=== PATIENT | female | born 1945 | race Caucasian/White ===

== ENCOUNTER → 2018-02-10 | Outpatient (CLI) | payer OTHER ==
[~2018-02-10] MED LIST: ASPIR 8181 MG PO; ATENOLOL 100MG100 MG PO; COZAAR 50 MG TA50 MG PO; DEVIL S CLAW PO; DUONEB 2.5-0.5 M3 ML INH; LEVAQUIN 500 M500 M2 PO; LOSARTAN-HCTZ1 EAC3 PO; NORCO 7.5-3251 EACH; NORVASC10 MG; NYSTATIN 1100000 U/M SW&SWALLOW; OMEGA-31000 M1; PREDNISONE 20 M20 MG PO
[2018-02-10 09:50] LABS: ABSOLUTE BASOPHILS 0.1 thou/uL (0.0-0.2); ABSOLUTE LYMPHOCYTES 2.2 thou/uL (0.8-5.3); ABSOLUTE MONOCYTES 0.6 thou/uL (0.0-1.2); ABSOLUTE NEUTROPHILS 7.3 thou/uL (1.6-8.1); BASOPHILS 0.7 %; EOSINOPHILS 0.3 %; HEMATOCRIT 42.2 % (37.0-47.0); HEMOGLOBIN 14.7 gm/dL (12.0-15.0); LYMPHOCYTES 21.7 %; MCH 32.2 pg (26.0-34.0); MCHC 34.8 g/dL (28.0-37.0); MCV 92.4 fL (80.0-100.0); MONOCYTES 6.2 %; NUCLEATED RBCS 0 /100WBC; PLATELET COUNT* 194 thou/uL (150-400); POLYS 71.1 %; RBC 4.57 mil/uL (4.20-5.00); RDW-CV 13.1 % (10.5-14.5); WBC 10.3 thou/uL (4.0-11.0)
[2018-02-10 10:49] LABS: ALBUMIN 3.6 g/dL (3.4-5.0); ALKALINE PHOSPHATASE 66 U/L (46-116); ANION GAP 10 mmol/L (7-16); BUN 17 mg/dL (7-18); CHLORIDE 101 mmol/L (98-107); CHOLESTEROL 142 mg/dL (<200); CO2 28 mmol/L (21-32); CREATININE 0.8 mg/dL (0.6-1.3); GLUCOSE 129 mg/dL (70-99); HDL CHOLESTEROL 45 mg/dL (>40); LDL CHOLESTEROL 86 mg/dL (<100); POTASSIUM 4.1 mmol/L (3.5-5.1); SGOT 24 U/L (15-37); SGPT 41 U/L (30-65); SODIUM 139 mmol/L (136-145); TC:HDL 3.2 Ratio (Not establshd); TOTAL BILIRUBIN 0.9 mg/dL (<0.1-1.0); TOTAL PROTEIN 7.3 g/dL (6.4-8.2); TRIGLYCERIDE 56 mg/dL (<150); VLDL 11 mg/dL (<40)
[2018-02-10 10:56] LABS: SERUM ASSESSMENT Clear
[2018-02-11 22:06] LABS: GLYCOHEMOGLOBIN (HGB A1C) 6.3 % (4.8-5.6)
[2018-02-19 10:48] LABS: GLYCOHEMOGLOBIN (HGB A1C) 6.3
== END ==
LOC: M.RAD 08:54
PROVIDERS: Family Medicine
DX: I10 Essential (primary) hypertension (principal); M81.8 Other osteoporosis without current pathological fracture; M18.0 Bilateral primary osteoarthritis of first carpometacarpal joints; R73.09 Other abnormal glucose; Z78.0 Asymptomatic menopausal state; J15.3 Pneumonia due to streptococcus, group B

== ENCOUNTER → 2018-04-17 | Outpatient (CLI) | payer OTHER ==
[2018-04-17 10:32] LABS: ALBUMIN 3.5 g/dL (3.4-5.0); CALCIUM 9.7 mg/dL (8.5-10.1); CREATININE 0.8 mg/dL (0.6-1.3)
== END ==
LOC: M.LAB 10:04
PROVIDERS: Family Medicine
DX: M81.8 Other osteoporosis without current pathological fracture (principal)

== ENCOUNTER → 2018-10-27 | Outpatient (CLI) | payer OTHER ==
[2018-10-27 10:17] LABS: HEMATOCRIT 44.8 % (37.0-47.0); HEMOGLOBIN 15.1 gm/dL (12.0-15.0); MCH 31.9 pg (26.0-34.0); MCHC 33.8 g/dL (28.0-37.0); MCV 94.5 fL (80.0-100.0); MPV 8.9 fl. (7.2-11.1); RBC 4.75 mil/uL (4.20-5.00); RDW-CV 13.4 % (10.5-14.5); WBC 9.1 thou/uL (4.0-11.0)
[2018-10-27 10:42] LABS: ALBUMIN 3.6 g/dL (3.4-5.0); CALCIUM 9.3 mg/dL (8.5-10.1); CREATININE 0.7 mg/dL (0.6-1.3); POTASSIUM 3.7 mmol/L (3.5-5.1); TOTAL BILIRUBIN 1.2 mg/dL (<0.1-1.0); TOTAL PROTEIN 7.4 g/dL (6.4-8.2)
[2018-10-27 19:07] LABS: GLYCOHEMOGLOBIN (HGB A1C) 6.3 % (4.8-5.6)
== END ==
LOC: M.LAB 09:49
PROVIDERS: Nurse Practitioner Family
DX: E11.65 Type 2 diabetes mellitus with hyperglycemia (principal); M81.0 Age-related osteoporosis without current pathological fracture; R53.83 Other fatigue; I10 Essential (primary) hypertension; R60.1 Generalized edema

== ENCOUNTER → 2020-02-14 | Day surgery (SDC) | payer MEDICARE ==
[~2020-02-14] MED LIST changes: +CALCIUM 600 +1 EAC8 PO; +COLACE100 MG PO; +LOSARTAN POTAS100 MG PO; +METFORMIN HCL500 MG PO; +NORCO 5-325 TA1 EACH PO; +OXYCODONE HCL 55 MG PO; +PERCOCET 5-3251 EACH PO; +TUMS PO; +VITAMIN D1000 UNI1 PO; +VITAMIN D325 MC3 PO; +VITAMIN E400 UNIT PO
--- NOTE | ~2020-02-14 | OP ---
[address] [address] OPERATIVE REPORT Name: BERTRAM AYALA Room: [facility]#: [id number] Admission: 02/14/20 Attend Phys: Ralph Parsons II Discharge: Date of : 47 Report #: [id number] THIS REPORT FOR: //name// cc: Jairo Lopez Russell J. DO ~ THIS REPORT FOR: //name// CC: Ralph Lopez DATE OF SERVICE: 02/14/2020 PREOPERATIVE DIAGNOSIS: Left shoulder biceps tendon tear. POSTOPERATIVE DIAGNOSES: 1. Left shoulder biceps tendon tear. 2. Rotator cuff tear. 3. Lateral clavicle osteoarthritis. 4. Bone and cartilage debris with labral tears, glenohumeral joint. 5. Subacromial impingement. PROCEDURES PERFORMED: 1. Left shoulder arthroscopic surgery with rotator cuff repair. 2. Arthroscopic biceps tenodesis. 3. Arthroscopic lateral clavicle excision. 4. Arthroscopic extensive debridement of labral tears in glenohumeral joint. 5. Arthroscopic subacromial decompression. SURGEON: Ralph Parsons II, DO INTENSIVIST: DOROTHY Solis ANESTHESIA: Per operative record. ESTIMATED BLOOD LOSS: Minimal. ANTIBIOTICS: Per operative record. DRAINS: None. COMPLICATIONS: None. CONDITION OF THE PATIENT: Stable to recovery room. BRIEF HISTORY: The patient was previously seen in the clinic, has endured significant pain for the last month and a half with rotator cuff tear that was [address] [address] OPERATIVE REPORT Name: BERTRAM AYALA Room: [facility]#: [id number] Admission: 02/14/20 Attend Phys: Ralph Parsons II Discharge: Date of : 47 Report #: [id number] traumatic. The patient has waited sufficient amount of time and was prepared to proceed with surgery during the current pandemic crisis. The patient was discussed the risks and benefits in full detail and elected to proceed. She was warned of all appropriate risks. DESCRIPTION OF PROCEDURE: The patient was taken to the operative suite and placed supine on the operating table, given appropriate anesthesia. The patient's affected shoulder was sterilely prepped and draped in modified beach chair position. All bony prominences well padded. Surgery began by posterior portal incision. The arthroscope was advanced in the joint. There was shown to be a tear greater than 50% of the biceps tendon with tearing from the anterior aspect of the glenoid. Establishing an anterior portal and cannula, the biceps tendon was secured utilizing a stitch. It was then snipped from the glenoid attachment and anchored to the biceps groove anteriorly in the shoulder. This was probed and shown to be secure and intact. There was shown to be extensive bone and cartilage debris within the glenohumeral joint as well as labral tears. Using a shaver, an extensive debridement was performed throughout the superior, inferior as well as anterior and posterior portions of the glenohumeral joint. Utilizing a shaver to remove all bone and cartilage debris and all labral tears. The arthroscope was advanced in the subacromial space and subacromial decompression with partial anterior acromioplasty was performed. The distal centimeter of lateral clavicle was excised utilizing a shaver to the distal centimeter of clavicle due to significant osteoarthritis. There was shown to be rotator cuff tear noted to the anterior margin of the supraspinatus at its attachment near the anterior footprint. Establishing a lateral portal, this was debrided back to fresh tissue. Suture was then placed at the proximal aspect of the tear. It was then placed over the lateral aspect and anchored down to bone. This was probed and shown to be intact with excellent repair of rotator cuff and full range of motion of the shoulder without evidence of re-tear. Final irrigation of shoulder was then performed. Final images were taken. The shoulder was drained of arthroscopic fluid, closed with 4-0 nylon in simple fashion. Dermabond and sterile dressing and sling were applied. The patient transported to recovery room in stable condition. Counts were correct throughout the procedure. By: [id number] Parsons II, DO /nt
[2020-02-14 13:21] LABS: HEMATOCRIT 39.1 % (37.0-47.0); HEMOGLOBIN 13.8 gm/dL (12.0-15.0); MCH 32.8 pg (26.0-34.0); MCHC 35.2 g/dL (28.0-37.0); MCV 93.1 fL (80.0-100.0); MPV 9.1 fl. (7.2-11.1); RBC 4.2 mil/uL (4.20-5.00); RDW-CV 13.4 % (10.5-14.5); WBC 7.4 thou/uL (4.0-11.0)
[2020-02-14 13:29] LABS: CALCIUM 8.4 mg/dL (8.5-10.1); CREATININE 0.6 mg/dL (0.6-1.3); POTASSIUM 3.9 mmol/L (3.5-5.1)
--- NOTE | 2020-02-14 13:36 | EKG ---
[place] [address] ELECTROCARDIOGRAM REPORT Name: BERTRAM AYALA Room: [facility]#: [id number] Admission: 02/14/20 Attend Phys: Ralph Parsons, Discharge: Date of : 47 Date of Service: 02/14/20 1304 Report #: [id number] THIS REPORT FOR: //name// [facility] Test Date: 2020-02-14 Test Time: 13:04:56 Pat Name: BERTRAM AYALA Department: Room: Gender: [employer]: : 1945 Requested By: Ralph Parsons Order Number: [id number] Reading MD: Eliot Crystal Measurements Intervals [place] Rate: 53 P: 33 NV: 170 QRS: -2 QRSD: 90 T: 42 QT: 457 QTc: 430 Interpretive Statements Sinus rhythm RsR' noted in V1 Probable left atrial enlargement Probable left ventricular hypertrophy Compared to ECG 12/15/2018 11:09:12 no change Electronically Signed On 02-14-2020 13:34:49 CDT by Eliot Crystal [email or web address] <ELECTRONICALLY SIGNED> By: Eliot Crystal MD, [facility] 02/14/20 1334 1304 1304 Eliot Crystal MD, [facility] /EPI
== END | disposition home or self-care (01) ==
LOC: M.SUR 11:39
PROVIDERS: Orthopaedic Surgery
DX: S46.212A Strain of muscle, fascia and tendon of other parts of biceps, left arm, initial encounter (principal); M75.102 Unspecified rotator cuff tear or rupture of left shoulder, not specified as traumatic; M19.012 Primary osteoarthritis, left shoulder; M94.8X1 Other specified disorders of cartilage, shoulder; M75.42 Impingement syndrome of left shoulder; S43.492A Other sprain of left shoulder joint, initial encounter; I10 Essential (primary) hypertension; Z98.890 Other specified postprocedural states; Z79.899 Other long term (current) drug therapy; Z90.710 Acquired absence of both cervix and uterus; Z85.828 Personal history of other malignant neoplasm of skin; Y93.89 Activity, other specified; X58.XXXA Exposure to other specified factors, initial encounter; Y92.89 Other specified places as the place of occurrence of the external cause; Y99.8 Other external cause status

== ENCOUNTER → 2020-11-14 | Outpatient (CLI) | payer MEDICARE | LOC: M.LAB 10:00 | PROVIDERS: ATTEND Orthopaedic Surgery | DX: Z01.812 Encounter for preprocedural laboratory examination (principal); Z20.822 Contact with and (suspected) exposure to COVID-19 ==